=== PATIENT | female | born 1955 | race African-American/Black ===

== ENCOUNTER 2023-04-17 06:24 | Day surgery (SDC) | payer OTHER ==
--- NOTE | 2023-04-15 13:34 | RAD REPORT ---
EXAM DESCRIPTION: RAD - Chest Pa And Lat (2 Views) - 04/15/2023 1:17 pm CLINICAL HISTORY: Pre op pending sacral neuromodulation procedure Chest pain. COMPARISON: <Comparisons> FINDINGS: The lungs are clear. The heart is normal in size. No displaced fractures. IMPRESSION: No acute or concerning finding suspected.
[2023-04-17] MEDS ORDERED: SUCCINYLCHOLINE 20 MG/ML (10 ML) IV ONE ×2 (06:51→07:38)
[2023-04-17] MEDS ORDERED: ROCURONIUM 50 MG/5 ML VIAL IV ONE (07:33)
[2023-04-17] MEDS ORDERED: BUPIVACAINE 0.25% PF 30 ML VIAL ONE (07:33)
[2023-04-17] MEDS ORDERED: FENTANYL CITR 100 MCG/2 ML ONE (07:33)
[2023-04-17] MEDS ORDERED: propofoL 200 MG/20 ML VIAL IV ONE (07:33)
[2023-04-17] MEDS ORDERED: MIDAZOLAM HCL 2 MG/2 ML INJ ONE (07:34)
[2023-04-17] MEDS ORDERED: ONDANSETRON 4 MG/2 ML VIAL ONE (07:34)
[2023-04-17] MEDS ORDERED: LIDOCAINE 2% MPF 5 ML VIAL ONE (07:34)
[2023-04-17] MEDS ORDERED: CEFAZOLIN SODIUM 2 GM/VIAL ONE (07:57)
[2023-04-17] MEDS ORDERED: Ringers Lactate 1,000 ML IV ONE (07:57)
[2023-04-17] MEDS ORDERED: dexAMETHasone 4 MG/ML VIAL ONE (08:00)
[2023-04-17] MEDS ORDERED: Phenylephrine HCl 10 MG/ML 1 ML VIAL ONE (08:03)
[2023-04-17] MEDS ORDERED: GLYCOPYRROLATE 0.2 MG/ML SYR ONE (09:04)
[2023-04-17] MEDS ORDERED: NEOSTIGMINE 1 MG/ML -10 ML VIAL ONE (09:04)
[2023-04-17] MEDS ORDERED: LIDOCAINE 4% TOP SOLUTION ONE (09:42)
--- NOTE | 2023-04-17 10:37 | RAD REPORT ---
EXAM DESCRIPTION: RAD - Fluoroscopy <1 Hour - 04/17/2023 10:26 am CLINICAL HISTORY: Sacral neural modulation FINDINGS: Sacral neural modulation performed The examination was performed by Fluoroscopy time .3 minutes. 13 fluoroscopic spot images obtained
[2023-04-17 11:05] VITALS: BP 94/56; TEMP 97; O2SAT 99
--- NOTE | 2023-04-17 14:24 | OP ---
Date of Procedure: 04/17/2023 Surgeon: Liz Turner MD Preoperative Diagnoses: Urge urinary incontinence, refractory overactive bladder. Postoperative Diagnoses: Urge urinary incontinence, refractory overactive bladder. Procedure Performed: InterStim stage I with incision and implantation of tined quadripolar electrode s into S3 foramen with fluoroscopic guidance for needle placement. Anesthesia: General. Specimens: No specimens. Complications: No complications. Drains: No drains. Condition: Stable. Findings: Left S3 was used for placement of the quadripolar tined electrode. There were good respon ses of both toes and renée for the electrodes. The position confirmed on fluoroscopy was satisfact ory in both the AP and lateral views. Indications: The patient is a 67-year-old female with severe urge incontinence, frequency, and evalu ated and diagnosed with overactive bladder. She has been treated with first and second-line treatmen t, had not had a good response of with them. Pelvic floor exercises were taught. The patient has si gnificant difficulty despite this, so the line treatments were both offered. Urodynamic testing was done preoperatively. We discussed about the benefits and risks of both options with efficacy in the short and long-term. The patient preferred to proceed sacral neuromodulation, so we discussed about the InterStim in a staged treatment, although preferred to have her stage I in the hospital, so she w as consented and brought into the hospital. Procedure In Detail: The patient was properly identified, placed in a prone position via the OR prot ocol. General anesthesia was given first and then she was positioned on the table. Pillows were shannon yaya under the lower abdomen to flatten the sacrum and under shins to allow the toes to dangle freely. The patient was then prepped and draped in a sterile fashion using ChloraPrep. The C-arm was drape d and moved into AP position to provide fluoroscopic mapping of the sacral region. It was pulled carolyn k and then the procedure was started. 15 cc of local was administered after marking midline from the coccyx to the sacral promontory. Measurements were made at 9, 10, and 11 cm from the coccyx and 1.5 and 2 cm lateral qureshi were placed at the levels on either side of the midline. A foramen needle was introduced approximately 1.5 cm lateral to the midline and 10 cm from the coccyx . Attempt was made to enter. S3 needle was dropped into the foramina. Once it was tested, there wa s just response to the renée with no toe response flexion, so this needle was removed as it was inf iltrating S4 and attempted to reposition into S3 from this same entry point, but this was difficult, so moved up another 1 cm and then slightly lateral to 1.5 cm. Once the needle was placed into the S3 foramina and tested, there was good response, so needle was placed into the right and the left side both, first was left then the right. The needle position was confirmed through AP and fluoroscopy. The left needle placement was much better, so this was used and had a slightly reposition to angle it to lay down and entered, had a good angle to the anterior aspect of the sacrum. Once this was adjus manuel appropriately under fluoroscopic guidance, the needle position was confirmed by the observation o f the lifting of the perineum with renée and plantar flexion of the great toe at the external test stimulator, 10 levels used were anywhere from 1 point size to 3 with strong response. The foramina stylet was then removed. Bidirectional guide was placed and confirmed fluoroscopically. The foramen the needle was removed after an incision was made over the needle through the fascial l hans and the needle was pulled out stabilizing the directional guide. Lead introducer sheath with di lator was then placed over the directional guide and directed into the foramen ensuring the radiopaqu e marker of the lead introducer, did not extend beyond the anterior edge of the sacrum. The dilator was then unlocked and removed along with the directional guide. The lead was then placed through the introducer sheath to the first white line. The position was checked fluoroscopically. Then, the le ad was then introduced and the 3 electrodes were visible below the sacrum and deep and the 4th electr ode was straddling the anterior aspect of the sacrum. Each electrode was tested for location and the re was a good response of both renée and plantar flexion of the great toe. Then after satisfactory positioning was confirmed, the introducer sheath was retracted under continuous fluoro deploying the tines into the presacral tissue. Further incision was made in the subcutaneous tissues posterior to the iliac crest, lateral to the sa otilio. About 4 cm incision was made after injecting with local. Subcutaneous tissue dissected to abo ut 1 inch below the skin level, pocket created. A tunneling tool with the straw was placed from the lead exit site subcutaneously to the incised pocket site. The tunneling tool was removed and the jules d was fed through the straw and pulled out of the pocket site. The lead was cleansed off bodily flui ds and dried. Once this straw was pulled out of the pocket site, then another tunneler was taken fro m the site of the pocket site to an area of medial and slightly above the level of this incision and exit site was found, so I could tunnel through here in the temporary percutaneous extension and the m etal bands were to be connected to the boot. The lead was then inserted into the boot and the 4 set screws were tightened with the hex wrench. The silk ties were placed on the lead attaching the boot to the external stimulator so that this could not tie outside of the incision. This was all inserted back to the pocket including the lead, wires, boot and percutaneous extension wire. The wounds were irrigated with antibiotic solution and water and closed with 3-0 chromic sutures in t he subcutaneous plane and 5-0 Monocryl and then 4-0 Monocryl in a subcuticular plane. Counts were co rrect. Steri-Strips and 4x4s were placed over the incision. Tegaderm was placed and then the incisi ons were completely covered. The gauze was placed onto the Twist-Lock cable connector. Once this wa s attached, EBL was minimal. The patient was transferred to the recovery room in a satisfactory [facility] ition. Using the external test stimulator, the patient was programmed to the electrode of optimum se nsation and given instructions on utilizing the external test stimulator prior to discharge and that will be kept until return appointment to my office and discuss results of the InterStim. EBL minimal and counts correct. SK/MODL Voice ID: [id number] Report ID: [id number]
== END 2023-04-17 10:55 | disposition home or self-care (01) ==
LOC: OR 06:24
PROVIDERS: ATTEND Obstetrics & Gynecology
PROC: 01HY3MZ Insertion of Neurostimulator Lead into Peripheral Nerve, Percutaneous Approach (ICD-10-PCS; principal; 2023-04-17 07:30)
DX: N39.41 Urge incontinence (principal); N32.81 Overactive bladder
CPT/HCPCS: 71046; 64561; J2704; J1100; J2710; J2371; J2001; J2250; J3010; J2405; J7120; 76000

== ENCOUNTER 2023-04-24 09:31 | Day surgery (SDC) | payer OTHER ==
[2023-04-24] MEDS ORDERED: Ringers Lactate 1,000 ML IV ONE (09:54)
[2023-04-24] MEDS ORDERED: propofoL 200 MG/20 ML VIAL IV ONE (11:24)
[2023-04-24] MEDS ORDERED: FENTANYL CITR 100 MCG/2 ML ONE (11:24)
[2023-04-24] MEDS ORDERED: LIDOCAINE 2% MPF 5 ML VIAL ONE (11:24)
[2023-04-24] MEDS ORDERED: MIDAZOLAM HCL 2 MG/2 ML INJ ONE (11:25)
[2023-04-24] MEDS: CEFAZOLIN SODIUM 2 GM/VIAL ONE ×2 (11:36→12:05)
[2023-04-24] MEDS ORDERED: NS 0.9% VIAL 20 ML ONE (11:57)
[2023-04-24] MEDS ORDERED: LIDOCAINE HCL/EPINEPHRINE 20 ML MDV ONE (12:17)
[2023-04-24 16:08] VITALS: BP 137/61; TEMP 97.2; O2SAT 99
--- NOTE | 2023-04-25 04:09 | OP ---
Date of Procedure: 04/24/2023 Surgeon: Liz Turner MD Preoperative Diagnosis: Feeling of incomplete bladder emptying and urge urinary incontinence and urg ency. Postoperative Diagnosis: Feeling of incomplete bladder emptying and urge urinary incontinence and ur gency. Procedures Performed: Stage II InterStim, which is incision and subcutaneous implantation of sacral neurostimulator with electronic analysis and programming. Anesthesia: MAC. Specimens: No specimens. Complications: None. Findings: The implant was just on the left buttock. The impedance check were checked and the connec tion was confirmed before the incision was closed. Drains: No drains. Condition: Stable. Indications: The patient is a 67-year-old female with severe urgency and frequency, incomplete bladd er emptying symptoms. She was evaluated with cystoscopy. No evidence of any bladder tumors. Then h ad urodynamic testing, which showed a low capacity of the bladder. There was a PVR of 120 when the p atient 350 cc of urine in the bladder. She had 120 PVR showing some voiding dysfunction. No gross e vidence of Valsalva leak. However, the patient's maximal urethral closure pressure was 70 cm of wate r. We discussed about all the different options for treatment which she did not respond to medications, so she was consented for InterStim stage I. On the stage I, she at least had 50% reduction in her fr equency even though she has not had 100% optimization on her expected or anticipated frequency. She was given the options of waiting further or not undergoing this versus undergoing the implantatio n and then observing for few more weeks for her improvement. Overall, since there is objective impro vement when compared from the her bladder log is very encouraging. Proceeded with consenting her for stage II InterStim. She was taken back to the OR. Procedure In Detail: After she was anesthetized, she was placed in a prone position per the OR lidia col. MAC was given. The patient was prepped and draped in a sterile fashion with ChloraPrep solutio n. Local injection of 1% lidocaine with epi was administered. The previous buttock pocket incision was opened up after making an incision with a 15 blade and using the blunt dissection and finding the lead in the percutaneous extension. These were both elevated. The percutaneous extension was picke d up with the hex wrench and set screws were exposed and loosened with the hex wrench. The boot was removed from the lead, then the percutaneous lead extension was cut and pulled out from the nonsteril e vaginal field out of the field. The boot was also discarded. The lead was cleansed of the body fluid and dried. The pocket was irrigated with sterile water. The lead was inserted into the header of the InterStim II neurostimulator until the blue tip was visuali zed at the distal window. The single set screw was tightened. The neurostimulator was placed into the subcutaneous pocket, with the etched identification side plac ed upwards and the excessive lead wrapped counterclockwise around the neurostimulator. The pocket th at was already was easy for me to slightly expand and secure hemostasis before insertion o f the neurostimulator. Once this was done, the programming head was placed over the implant stimulat or in a sterile cover to ensure adequate lead connection and the parameters were within normal limits . Impedances were confirmed to be within normal limits as well. The wound was irrigated again in sterile water and antibiotic solution. Subcutaneous sutures with 3- 0 chromic were done and then subcuticular with 5-0 Monocryl. Dermabond was placed here and the other incisions closed with bandages. Instrument, needle, and sponge counts were correct. EBL was minima l. The patient was recovered from anesthesia and taken to PACU in stable condition. Then, she was [facility] at this time and then given all instructions and discharged. She will be followed up in e next 3 weeks. Her was debriefed with all of the procedure and so was the patien t when she was awake. RJ/SUYAPA Voice ID: [id number] Report ID: [id number]
== END 2023-04-24 13:46 | disposition home or self-care (01) ==
LOC: OR 09:31
PROVIDERS: ATTEND Obstetrics & Gynecology
PROC: 0JH73BZ Insertion of Single Array Stimulator Generator into Back Subcutaneous Tissue and Fascia, Percutaneous Approach (ICD-10-PCS; principal; 2023-04-24 13:45)
DX: N39.41 Urge incontinence (principal); R33.9 Retention of urine, unspecified; I10 Essential (primary) hypertension; E78.00 Pure hypercholesterolemia, unspecified
CPT/HCPCS: A4216; J2001; J2250; J2704; J3010; J7120